=== PATIENT | male | born 2000 | race Two or more races ===

== ENCOUNTER 2019-03-17 21:15 | Emergency (ER) | payer SELFPAY ==
[~2019-03-17] VITALS: Ht 170.2 cm; Wt 65.8 kg
[2019-03-17] MEDS ORDERED: IV NS 0.9% 1,000 ML BAG IV ONE ×2 (22:00→22:30)
[2019-03-17 22:12] LABS: BASOPHILS % (AUTO) 0.4 % (0.0-2.0); EOSINOPHILS % (AUTO) 0.3 % (0.0-6.0); HEMATOCRIT 44 % (39-51); HEMOGLOBIN 15.6 g/dL (13.5-17.5); LYMPHOCYTES # (AUTO) 1.2 /CMM (0.8-4.8); LYMPHOCYTES % (AUTO) 16.5 % (20.0-44.0); MEAN CORPUSCULAR HGB CONC 35 g/dl (31.0-36.0); MEAN CORPUSCULAR VOLUME 91 fL (80-96); MONOCYTES % (AUTO) 13.7 % (2.0-12.0); NEUTROPHILS # (AUTO) 5.2 /CMM (1.8-8.9); NEUTROPHILS % (AUTO) 69.1 % (43.0-81.0); PLATELET COUNT (AUTO) 203 /CMM (150-450); WHITE BLOOD COUNT (AUTO) 7.5 K/uL (4.3-11.0)
[2019-03-17 22:16] LABS: APPEARANCE,URINE Clear (CLEAR); BILIRUBIN,URINE Negative (NEGATIVE); BLOOD, URINE Small Ery/uL (NEGATIVE); COLOR,URINE Dark (YELLOW); KETONES,URINE Negative (NEGATIVE); LEUKOCYTE ESTERASE ,URINE Negative (NEGATIVE); NITRITE, URINE Negative (NEGATIVE); PROTEIN,URINE 100 mg/dl (NEGATIVE); UGLUCOSE Negative (NEGATIVE); UROBILINOGEN,URINE 0.2 EU/dL (0.2)
[2019-03-17 22:26] LABS: ALBUMIN 3.7 g/dL (3.4-5.0); BILIRUBIN,DIRECT 0.2 mg/dL (0.0-0.2); BILIRUBIN,TOTAL 1.3 mg/dL (0.2-1.0); CALCIUM, SERUM 9.2 mg/dL (8.5-10.1); POTASSIUM 3.4 mmol/L (3.5-5.1)
[2019-03-17] MEDS ORDERED: KETOROLAC TROMETHAMINE INJ 30 MG/ML VIAL IV ONE (22:30)
[2019-03-17] MEDS ORDERED: ONDANSETRON HCL/PF 4 MG/2 ML VIAL IVP ONE (22:30)
[2019-03-17] MEDS ORDERED: MORPHINE SULFATE INJ 2 MG/ML DISP.SYRIN IV ONE (22:30)
--- NOTE | 2019-03-17 23:00 | NUR ---
ADDENDUM: Intravenous End Time Documentation: Normal saline 1 liter at 100 ml/hr : start time: 2300 ; end time: 0030 am (03/18/2019): IV site: LAC #[id number]; port # 1
[2019-03-17] MEDS ORDERED: KETOROLAC TROMETHAMINE 15 MG/ML VIAL ONE (23:03)
[2019-03-17] MEDS ORDERED: ONDANSETRON HCL/PF 4 MG/2 ML VIAL ONE (23:03)
[2019-03-17] MEDS ORDERED: MORPHINE SULFATE INJ 2 MG/ML DISP.SYRIN ONE (23:04)
[2019-03-17 23:17] LABS: BACTERIA,URINE None seen /HPF (None Seen); SQUAMOUS EPITHELIAL CELL,UR Few /HPF (None Seen); WBC,URINE 0-2 /HPF (0-3)
[2019-03-17] MEDS ORDERED: PIPERACILLIN /TAZOBACTAM 3.375 G VIAL IV ONE (23:23)
[2019-03-17] MEDS ORDERED: PIPERACILLIN /TAZOBACTAM 3.375 G in IV D5W 50 ML IV ONE (23:30)
--- NOTE | 2019-03-18 00:30 | NUR ---
Patient discharged to home in stable condition. Written and verbal after care instructions given. Patient verbalizes understanding of instruction.VSS. IV removed. Catheter intact and site benign. Pressure and 4x4 applied to site. No bleeding noted.
[2019-03-18 00:46] VITALS: BP 110/79
== END 2019-03-18 00:47 | disposition home or self-care (01) ==
LOC: ER 21:17
DX: A09 Infectious gastroenteritis and colitis, unspecified (principal); R11.10 Vomiting, unspecified
CPT/HCPCS: 36415; 74176; 80048; 80076; 81001; 83690; 85025; 96361; 96365; 96375; 99284; J1885; J2270; J2405; J2543; J7030 ×2; J7060; 81000-TC